=== PATIENT | male | born 1975 | race Two or more races ===

== ENCOUNTER → 2022-06-03 | Emergency (ER) | payer OTHER ==
[~2022-06-03] VITALS: Ht 175.3 cm; Wt 74.8 kg
== END | disposition left against medical advice (07) ==
LOC: ER 09:29
DX: S60.922A Unspecified superficial injury of left hand, initial encounter (principal); V19.9XXA Pedal cyclist (driver) (passenger) injured in unspecified traffic accident, initial encounter; Y93.55 Activity, bike riding; Y92.89 Other specified places as the place of occurrence of the external cause

== ENCOUNTER 2022-06-07 08:57 | Outpatient (CLI) | payer OTHER | END 2022-06-07 09:07 | disposition home or self-care (01) | LOC: RAD 08:57 | PROVIDERS: ATTEND Orthopaedic Surgery | DX: M25.532 Pain in left wrist (principal); M79.632 Pain in left forearm; M79.622 Pain in left upper arm; S20.219A Contusion of unspecified front wall of thorax, initial encounter ==

== ENCOUNTER 2022-06-14 08:06 | Outpatient (CLI) | payer OTHER | END 2022-06-14 08:14 | disposition home or self-care (01) | LOC: RAD 08:06 | PROVIDERS: ATTEND Orthopaedic Surgery | DX: S52.572A Other intraarticular fracture of lower end of left radius, initial encounter for closed fracture (principal) ==